=== PATIENT | male | born 1940 | race Caucasian/White ===

== ENCOUNTER 2016-11-21 10:43 | Emergency (ER) | payer MEDICARE, BC ==
--- NOTE | 2016-11-21 11:12 | Emergency Department Record ---
History of Present Illness - General Chief Complaint: Syncope Stated Complaint: PASSED OUT THIS MORNING Time Seen by Provider: 11/21/16 11:03 Source: Patient Mode of Arrival: Stretcher Limitations: No limitations - History of Present Illness Initial Comments: 76 yo male presents after multiple syncopal episodes. The initial episode occurred around 8:30am. He was in the kitchen making breakfast. He very briefly felt lightheaded and then passed out. He has had 3-4 episodes of abruptly getting lightheaded and nearly passing out. He had one other episode of passing out in his chair. No incontinence. No seizures. He has a history of CAD with CABG. He denies any chest pain. He is not short of breath. PCP [facility]. Cardiology Dr Smith. He has seen Dr Coreas in the past. MD Complaint: Loss of consciousness Onset/Timin -: Hour(s) Prodromal Symptoms: Headache Description of Event: Other Injuries Sustained Associated with Event: None Treatments Prior to Arrival: IV fluids - [place] Coma Scale Eye Response: (4) Open spontaneously Motor Response: (6) Obeys commands Verbal Response: (5) Oriented Mahad Total: 15 - Related Data Home Medications Medication Instructions Recorded Confirmed Last Taken Amlodipine Besylate [Norvasc] 5 mg PO DAILY 11/21/16 11/21/16 11/21/16 Aspirin [Aspir-Low] 81 mg PO DAILY 11/21/16 11/21/16 11/21/16 Atorvastatin Calcium [Lipitor] 20 mg PO DAILY 11/21/16 11/21/16 11/21/16 Canagliflozin [Invokana] 100 mg PO DAILY 11/21/16 11/21/16 11/21/16 Lisinopril 20 mg PO DAILY 11/21/16 11/21/16 11/20/16 Metformin HCl 500 mg PO BID 11/21/16 11/21/16 11/19/16 Metoprolol Tartrate [Lopressor] 25 mg PO DAILY 11/21/16 11/21/16 11/21/16 Sitagliptin Phosphate [Januvia] 100 mg PO DAILY 11/21/16 11/21/16 11/20/16 Allergies Allergy/AdvReac Type Severity Reaction Status Date / Time lansoprazole [From Prevacid] AdvReac HYPERSENSIT Verified 11/21/16 11:02 IVITY Travel Screening - Travel/Exposure Within Last 30 Days Have you traveled within the last 30 days?: No - Travel/Exposure Within Last Year Have you traveled outside the [place] in the last year?: No - Additonal Travel Details Have you been exposed to anyone with a communicable illness?: No - Travel Symptoms Symptom Screening: None Review of Systems Constitutional: Denies: Chills, Fever, Malaise, Weakness Eyes: Denies: Eye discharge ENT: Denies: Congestion, Dental pain, Throat pain Respiratory: Denies: Cough, Dyspnea, Hemoptysis, Stridor, Wheezes Cardiovascular: Reports: As per HPI, Palpitations, Syncope. Denies: Chest pain , Dyspnea on exertion, Edema Endocrine: Denies: Fatigue, Polydipsia, Polyuria Gastrointestinal: Denies: Abdominal pain, Diarrhea, Nausea, Vomiting Genitourinary: Denies: Dysuria, Frequency, Hematuria, Urgency Musculoskeletal: Denies: Arthralgia, Back pain, Joint swelling, Myalgia, Neck pain Skin: Denies: Bruising, Change in color, Rash Neurological: Reports: Headache (left sided posterior mild for 2 weeks). Denies : Confusion, Numbness, Tingling, Tremors, Vertigo, Weakness Psychiatric: Reports: Anxiety Hematological/Lymphatic: Denies: Anemia, Blood Clots, Easy bleeding, Easy bruising Past Medical History - SOCIAL HISTORY Smoking Status: Former smoker Alcohol Use: None Drug Use: None - RESPIRATORY Hx Respiratory Disorders: Yes Hx Pneumonia: Yes - CARDIOVASCULAR Hx Cardio Disorders: Yes Hx Cardiac Cath: Yes Hx Heart Attack: Yes (pt unsure) Comment:: anuerysm, LBBB, triple bypass - NEURO Hx Neuro Disorders: Yes - GI Hx GI Disorders: Yes Hx Hiatal Hernia: Yes - Hx Genitourinary Disorders: Yes Hx Kidney Stones: Yes - ENDOCRINE Hx Endocrine Disorders: Yes Hx Diabetes: Yes (Type 2) - MUSCULOSKELETAL Hx Musculoskeletal Disorders: No - PSYCH Hx Psych Problems: No - HEMATOLOGY/ONCOLOGY Hx Hematology/Oncology Disorders: No Family Medical History Any Significant Family History?: No Physical Exam - General General Appearance: Alert, Oriented x3, Cooperative, No acute distress Limitations: No limitations - Head Head exam: Atraumatic, Normocephalic, Normal inspection - Eye Eye exam: Normal appearance, PERRL. negative: Conjunctival injection, Periorbital swelling - ENT ENT exam: Normal exam, Mucous membranes moist Ear exam: Normal external inspection Nasal Exam: Normal inspection Mouth exam: Normal external inspection Teeth exam: Normal inspection Throat exam: Normal inspection - Neck Neck exam: Normal inspection, Full ROM. negative: Tenderness - Respiratory Respiratory exam: Normal lung sounds bilaterally. negative: Respiratory distress - Cardiovascular Cardiovascular Exam: Regular rate, Normal rhythm, Normal heart sounds. negative : Tachycardia Peripheral Pulses: 2+: Radial (R), Radial (L) - GI/Abdominal GI/Abdominal exam: Soft. negative: Tenderness - Rectal Rectal exam: Deferred - exam: Deferred - Extremities Extremities exam: Normal inspection, Full ROM, Normal capillary refill. negative: Pedal edema, Tenderness - Back Back exam: Reports: Normal inspection, Full ROM. Denies: Muscle spasm, Rash noted, Tenderness - Neurological Neurological exam: Alert, Normal gait, Oriented X3 - Psychiatric Psychiatric exam: Normal affect, Normal mood - Skin Skin exam: Dry, Intact, Normal color, Warm Course Vital Signs 11/21/16 10:49 Temperature 97.8 F Pulse Rate 68 Respiratory 16 Rate Blood Pressure 165/88 Pulse Ox 99 - Reevaluation(s) Reevaluation #1: EKG NSR rate is 69, LBBB, axis left, ST CW LBBB. NO old ekg on EMR. Prior EKG on file was from 1995. NSR. No BBB. 11/21/16 11:19 11/21/16 11:22 There are nota acute changes on the CBC, CMP except CR 1.4 The patient did get symptomatic in radiology The patient was noted on the rhythm strip to have short periods of bradycardia to 50 with dropped beats my represent second degree block. 11/21/16 12:26 11/21/16 12:46 [facility] Call [facility] was contacted for discussion with Cardiology The HCT scan was negative for acute process 11/21/16 13:[address] Hernández of EP at [facility]. He accepts the patient for transfer. Medical Decision Making - Lab Data Result diagrams: 11/21/16 11:00 11/21/16 11:00 Disposition Disposition: Transfer Clinical Impression: Syncope Qualifiers: Syncope type: unspecified Qualified Code(s): R55 - Syncope and collapse Transfer To: [facility] Reason For Transfer: Syncope, SSS Accepting Physician: Betty Time Discussed w/Accepting Physician: 13:17 Condition: (2) Stable Forms: Patient Portal Access Time of Disposition: 13:17 Quality - Quality Measures Quality Measures: N/A - Blood Pressure Screening Does Patient Have Any of the Following: No Blood Pressure Classification: Pre-Hypertensive BP Reading Systolic Measurement: 165 Diastolic Measurement: 88 Screening for High Blood Pressure: < Pre-Hypertensive BP, F/U Documented > [ [id number]] Pre-Hypertensive Follow-up Interventions: Referral to alternative/primary care provider.
[2016-11-21 11:22] LABS: BASO % 0.8 % (0-6); EOS % 1.8 % (0-6); GRAN % 66.8 % (47-80); HEMATOCRIT 47.7 % (42.0-52.0); LYMPH % 22.2 % (16-45); MEAN CELL VOLUME 90.2 fl (81-97); MEAN CORPUSCULAR HEMOGLOBIN 30.2 pg (27-33); MEAN CORPUSCULAR HGB CONC 33.5 g/dl (32-36); MEAN PLATELET VOLUME 10.3 fl (7.4-10.4); MONO % 8.4 % (0-9); PLATELET COUNT 330 K/uL (130-400); RED BLOOD COUNT 5.29 M/uL (4.40-5.70); RED CELL DISTRIBUTION WIDTH 13.5 % (11.5-14.5); WHITE BLOOD COUNT W/O DIFF 8.4 K/uL (4.2-12.2)
[2016-11-21 11:34] LABS: PARTIAL THROMBOPLASTIN TIME 26.4 SECONDS (24.5-39.1); PROTHROMBIN TIME (PATIENT) 10.8 SECONDS (9.5-12.1)
[2016-11-21 11:41] LABS: ALB/GLOB RATIO 1.3 (1.1-1.8); ALBUMIN 4.2 g/dL (4.0-5.0); ALKALINE PHOSPHATASE 55 U/L (40-129); ALT/SGPT 18 U/L (<41); AST/SGOT 19 U/L (10.0-50.0); BLOOD UREA NITROGEN 19 mg/dL (8-23); CREATININE 1.4 mg/dL (0.7-1.2); EST GLOMERULAR FILTRATION RATE 52 mL/min; GLUCOSE,RANDOM 172 mg/dL (74-109); TOTAL PROTEIN 7.4 g/dL (6.6-8.7); TROPONIN I < 0.30 ng/mL (0.00-0.300)
[2016-11-21 13:04] LABS: URINE APPEARANCE CLEAR; URINE BILIRUBIN NEGATIVE (NEGATIVE); URINE BLOOD NEGATIVE (NEGATIVE); URINE COLOR YELLOW; URINE GLUCOSE (UA) >=1000 mg/dL (NEGATIVE); URINE KETONE NEGATIVE (NEGATIVE); URINE LEUKOCYTE ESTERASE NEGATIVE (NEGATIVE); URINE NITRITE NEGATIVE (NEGATIVE); URINE PROTEIN NEGATIVE (NEGATIVE); URINE UROBILINOGEN 0.2 E.U./dL (0.20 - 1.00)
--- NOTE | 2016-11-22 14:42 | CT SCAN REPORT ---
EXAM: HEAD CT WITHOUT CONTRAST HISTORY: MULTIPLE EPISODES OF SYNCOPE, DIZZINESS, HEADACHE. TECHNIQUE: Contiguous axial images from the cerebral convexities to the foramen magnum were obtained without contrast. Comparison: None. Hand dominance: Right. Encounter: Initial. FINDINGS: Moderate generalized atrophy of the brain. No acute intracranial hemorrhage, mass effect, or midline shift. No CT evidence of acute infarct. The ventricles, basal cisterns and sulci are within normal limits. The osseous structures are unremarkable. Bilateral lens implants. Mild mucosal thickening in the right maxillary sinus. IMPRESSION: 1. NO ACUTE INTRACRANIAL PROCESS. 2. MODERATE GENERALIZED ATROPHY OF THE BRAIN. JOB NUMBER: [id number] MTDD
== END 2016-11-21 14:59 | disposition short-term general hospital (02) ==
LOC: ER 10:43
DX: R55 Syncope and collapse (principal); I44.7 Left bundle-branch block, unspecified; I25.10 Atherosclerotic heart disease of native coronary artery without angina pectoris; Z95.1 Presence of aortocoronary bypass graft; Z87.891 Personal history of nicotine dependence
CPT/HCPCS: 70450; 80053; 81003; 83735; 84484; 85025; 85610; 85730; 93005; 93010; 99285